=== PATIENT | female | born 1975 | race Caucasian/White ===

== ENCOUNTER 2024-03-02 13:35 | Outpatient (AMB) | payer BC, SELFPAY ==
--- NOTE | 2024-03-02 13:43 | MHC.PC.OV ---
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 Transferring care from [facility]. Medical records have not been requested and have not received. Director Of Retail Analytics Required: No Dragline Operator Helper: Not Required per policy Accompanied by: Self / Same As Patient Allergies acetaminophen [From Percocet] Allergy (Intermediate, Verified 03/09/24 05:05) Vomiting oxycodone [From Percocet] Allergy (Intermediate, Verified 03/09/24 05:05) Vomiting Medication List - Last Reconciled 03/02/24 by Grupo Sim MD No Known Home Meds Tobacco use date assessed: 03/02/24 Dental Screening Dental Screen Date: 03/02/24 Did you have a dental visit in the last 12 months?: Yes Did you have a dental problem in the last 6 months where you did not have access to dental care?: No Was dental information given to patient?: Patient has dentist HPI SCHOOL COOK/ shoulder pain HPI Details Patient comes in today to establish care - is transferring over from [facility] Relates (+) right shoulder pain x couple of months - shoulder is feeling better now Recalls that she fell on her right side in the parking lot after tripping on her own flip flops a few months ago and she did try to break her fall with her right hand then when she fell but the pain in her shoulder started up a couple of weeks later after her fall Notes that the pain in her shoulder feels worse in AM upon waking up and when she tries to reach behind her (downwards) Also relates (+) recurrent left foot pain for a few years now - states that the pain in her left foot feels worse in the summer and 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 She denies any recent injury or trauma to her left foot She denies any headaches or dizziness Denies any chest pains, no SOB No nausea/vomiting, no abdominal pain No change in bowel habits noted She denies any acute urinary symptoms She has been in menopause for a few years now - relates that her period stopped sometime in 2019; relates (+) mild hot flashes at times She last had her gynecology exam and pap smear done a few yrs ago Last annual mammogram was also about 8 yrs ago She has never had a screening colonoscopy done in the past [facility] Medical History (Updated 03/09/24 @ 05:18 by Grupo Sim MD) Obesity (BMI 30-39.9) No pertinent past medical history Surgical History History of tubal ligation History of dental surgery Social History Housing: House Alcohol intake: never Patient Tobacco Use Status: Former Tobacco user e-Cigarette/Vaping Use: Never Used Second Hand Smoke Exposure: Yes service: No Current occupational status: employed 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 1. Little interest or pleasure in doing things: not at all 2. Feeling down, depressed, or hopeless: not at all 3. Trouble falling or staying asleep, or sleeping too much: not at all 4. Feeling tired or having little energy: not at all 5. Poor appetite or overeating: not at all 6. Feeling bad about yourself - or that you are a failure or have let yourself or your family down: not at all 7. Trouble concentrating on things, such as reading the newspaper or watching television: not at all 8. Moving or speaking so slowly that other people could have noticed. Or the opposite - being so fidgety or restless that you have been moving around a lot more than usual: not at all 9. Thoughts that you would be better off or of hurting yourself in some way: not at all Total score: 0 Depression Screening Interpretation: Negative Depression Screening Done: Yes 33520 - PHQ-9 Billing: Yes Source: Developed by Drs. Chapo Spicer, Rona Choi, Terry Cruz and colleagues, with an educational harry from [employer]. Thrive Questionnaire Date Thrive assessed: 03/02/24 I am a: Patient What is your living situation today?: I have a steady place to live Within the past 12 months, did the food you bought not last and you didn't have the money to get more?: Never true Within the past 12 months, did you worry whether your food would run out before you got money to buy more?: Never true Do you have trouble paying for medicines?: No Do you have trouble getting transportation to medical appointments?: No Do you have trouble paying your heating and electricity bill?: No Do you have trouble taking care of your child, family member or friend?: No Do you have trouble with day-to-day activities such as bathing, preparing meals, shopping, managing finances, etc.?: No Are you currently unemployed and looking for a job?: No Are you interested in more education?: No Currently or been in a relationship where the following occur: No concerns reported THRIVE Score: 0 AUDIT C Alcohol Use Questionnaire (AUDIT-C) 1. How often do you have a drink containing alcohol?: Never 3. How often do you have six or more drinks on one occasion?: Never Total Score: 0 Score Reviewed/Action Taken: Yes CHERIE-7 AMB Questionnaire CHERIE-7 Date CHERIE - 7 assessed: 03/02/24 Feeling nervous, anxious, or on edge: 0 = Not at all Not being able to stop or control worryin = Not at all Worrying too much about different things: 0 = Not at all Trouble relaxin = Not at all Being so restless that it is hard to sit still: 0 = Not at all Becoming easily annoyed or irritable: 0 = Not at all Feeling afraid as if something awful might happen: 0 = Not at all Total CHERIE-7 score (0-4 normal; 5-9 mild; 10-14 moderate; 15-21 severe): 0 Source: Developed by Drs. Chapo Spicer, Rona Choi, Terry Cruz and colleagues, with an educational harry from [employer]. Review of Systems Const Denies chills, Denies fatigue, Denies fever(s), Denies headache(s) and Denies malaise Eyes Denies blurry vision, Denies change in vision, Denies irritation and Denies itchy eyes ENT Denies dysphagia, Denies dizziness, Denies otalgia, Denies headache(s), Denies nasal congestion, Denies neck pain, Denies odynophagia, Denies sinus pain and Denies sore throat Card Denies chest pain, Denies rapid heart rate, Denies irregular heart rhythm, Denies palpitations and Denies dyspnea Resp Denies chest congestion, Denies cough, Denies dyspnea and Denies wheezing GI Denies abdominal pain, Denies bloating, Denies constipation, Denies dysphagia, Denies heartburn, Denies diarrhea, Denies nausea, Denies odynophagia and Denies vomiting Denies hematuria, Denies urinary frequency, Reports hot flashes (occasionally), Denies dysuria, Denies urinary incontinence and Denies urinary urgency Musc Details: left foot pain - see HPI Denies back pain, Reports arthralgias (in the right shoulder - see HPI), Denies joint swelling, Denies muscle weakness and Denies neck pain Skin/Breast Denies breast pain, Denies breast mass, Denies change in pigmentation, Denies lesions, Denies rash and Denies unusual bruising Neuro Denies dizziness, Denies headache(s) and Denies paresthesias Psych Denies anxiety and Denies depression Endo Denies fatigue and Denies palpitations Raulito/Lymph Denies easy bruising Aller/Immun Denies itchy eyes and Denies wheezing Physical exam (Primary Care) Vital Signs: Last Vital Signs Pulse 105 H 03/02/24 13:45 BP 110/82 03/02/24 13:45 Pulse Ox 98 03/02/24 13:45 Oxygen Delivery Method Room Air 03/02/24 13:45 BMI result Body Mass Index 30.0 Tobacco/Smoking Status: Tobacco use Status Tobacco use date assessed 03/02/24 03/02/24 13:54 Patient Tobacco Use Status Former Tobacco user 03/02/24 13:54 e-Cigarette/Vaping Use Never Used 03/02/24 13:54 PHQ-9: PHQ-9 Score PHQ-9: Total score 0 03/02/24 14:14 Depression Screening Interpretation: Negative Thrive Assessment: Date of Thrive Assessment Date Thrive assessed 03/02/24 03/02/24 13:54 Currently or been in a relationship where the following occur: No concerns reported Const General: no acute distress, alert and awake Orientation/consciousness: patient oriented x3 HENMT Head: Yes normocephalic and Yes atraumatic Ears: external ears normal, TM's normal bilaterally and EAC's normal General nose exam: No nasal discharge present Face and sinus: Yes normal facial exam and Yes sinuses nontender Teeth and gingiva: dentition normal Throat: Yes posterior oropharynx normal and Yes tonsils normal (no TP congestion) Eyes Eyelids: Yes eyelids normal Conjunctivae: conjunctivae normal Pupils: Equal, round and reactive pupils present EOM: EOMs intact bilaterally Neck Neck: Yes no lymphadenopathy and Yes supple Thyroid: Thyroid normal Resp Auscultation: clear to auscultation bilaterally, no rales and no wheezes Cardio Rate: regular rate Rhythm: regular rhythm Heart sounds: no murmurs GI Palpation (GI): Soft to palpation, nontender and No hepatosplenomegaly present Auscultation: normal bowel sounds General: Yes no CVA tenderness Back/Spine/Pelvis Back: no CVA tenderness Thoracic/Lumbar Spine: thoracic and lumbar spine normal to inspection Skin Lesions: no lesions Rashes: no rashes Neuro General: patient oriented x3, moves all extremities, no focal motor deficits and CN's II-XI intact bilaterally Cranial nerves: Yes Equal, round and reactive pupils present Cognition (Neuro): normal cognition Gait exam (Neuro): Normal gait present Extrem General: Yes no clubbing, cyanosis or edema Right upper extremity: shoulder/upper arm Details: tenderness Location: of the A-C joint and normal ROM Left lower extremity: foot Details: normal to inspection; no tenderness Assessment and Plan Assessment & Plan (1) Annual physical exam: Code(s): Z00.00 - Encounter for general adult medical examination without abnormal findings Plan: Check labs (2) Right shoulder pain: Code(s): M25.511 - Pain in right shoulder Qualifiers: Chronicity: unspecified Qualified Code(s): M25.511 - Pain in right shoulder Plan: Will send patient for x-rays of the right shoulder for further evaluation (3) Left foot pain: Code(s): M79.672 - Pain in left foot Plan: Will send her for left foot x-rays for further evaluation (4) Obesity (BMI 30-39.9): Code(s): E66.9 - Obesity, unspecified Plan: Discussed diet/exercise as tolerated/lose weight (5) Colon cancer screening: Code(s): Z12.11 - Encounter for screening for malignant neoplasm of colon Plan: Will refer her to GI for screening colonoscopy (6) Breast cancer screening by mammogram: Code(s): Z12.31 - Encounter for screening mammogram for malignant neoplasm of breast Plan: Will send her for annual mammography (7) Cervical cancer screening: Code(s): Z12.4 - Encounter for screening for malignant neoplasm of cervix Plan: Will refer her to gynecology for her annual pap smear and gynecology exam Plan To return in 1 year for her next annual physical examination Orders: Orders Complete Blood Count Auto Diff 03/02/24 D64.9 - Anemia, unspecified, Z00.00 - Encounter for general adult medical examination without abnormal findings Comprehensive [place]. Panel Fast 03/02/24 E78.00 - Pure hypercholesterolemia, unspecified, Z00.00 - Encounter for general adult medical examination without abnormal findings Lipid Panel 03/02/24 E78.00 - Pure hypercholesterolemia, unspecified, Z00.00 - Encounter for general adult medical examination without abnormal findings UA CC w/rflx Micro + Cult 03/02/24 R30.0 - Dysuria, Z00.00 - Encounter for general adult medical examination without abnormal findings XR shoulder RT min 2V 03/02/24 M25.511 - Pain in right shoulder XR foot LT min 3V 03/02/24 M79.672 - Pain in left foot TSH reflex Free T4 03/02/24 E78.00 - Pure hypercholesterolemia, unspecified, Z00.00 - Encounter for general adult medical examination without abnormal findings Vitamin D 25-OH Total 03/02/24 E55.9 - Vitamin D deficiency, unspecified, Z00.00 - Encounter for general adult medical examination without abnormal findings MM tomosynthesis screening BI 03/02/24 Z12.31 - Encounter for screening mammogram for malignant neoplasm of breast Referrals Gastroenterology Referral Z12.11 - Encounter for screening for malignant neoplasm of colon INCIDENT RESPONSE ANALYST Referral Z12.4 - Encounter for screening for malignant neoplasm of cervix Coding Level of Care Code New Pt Prev Care 40-64y(96509) Diagnoses Annual physical exam Z00.00 Right shoulder pain, unspecified chronicity M25.511 Chronicity: unspecified Left foot pain M79.672 Obesity (BMI 30-39.9) E66.9 Colon cancer screening Z12.11 Breast cancer screening by mammogram Z12.31 Cervical cancer screening Z12.4
[2024-03-02 13:45] VITALS: BP 110/82; PULSE 105; O2SAT 98
== END 2024-03-02 14:37 | disposition home or self-care (01) ==
PROVIDERS: PCP Internal Medicine; Visit Provider Internal Medicine
DX: Z00.00 Encounter for general adult medical examination without abnormal findings (principal); M25.511 Pain in right shoulder; E66.9 Obesity, unspecified; Z68.30 Body mass index [BMI] 30.0-30.9, adult
CPT/HCPCS: 99386

== ENCOUNTER 2024-04-08 08:32 | Outpatient (REF) | payer BC, SELFPAY ==
--- NOTE | ~2024-04-08 | MM_ITS ---
EXAMINATION: MM SCREENING DIGITAL BREAST TOMOSYNTHESIS, BILATERAL CLINICAL INFORMATION: Screening. Asymptomatic. COMPARISON: Mammography: Baseline. TECHNIQUE: Digital breast tomosynthesis is performed in both the craniocaudal and mediolateral oblique views along with computer-aided detection (CAD). Synthesized 2D images are generated from the tomosynthesis. FINDINGS: There are scattered areas of fibroglandular density (ACR BI-RADS breast composition Category b). There are no significant masses, abnormal calcifications, or other abnormalities. MM/MM tomosynthesis screening BI IMPRESSION: No mammographic evidence of malignancy. ASSESSMENT: BI-RADS BI-RADS 1 - Negative RECOMMENDATION: Routine annual mammography screening. 1 year F/U This examination should not preclude the clinical evaluation of a suspicious palpable abnormality. This patient's information was entered into a reminder system with a target due date for their next mammogram. Electronically signed by: Jana Beckman DO 05/01/2024 03:56 PM EDT
== END 2024-04-08 08:33 | disposition home or self-care (01) ==
LOC: HO.MAMMO 08:32
PROVIDERS: PCP Internal Medicine; Visit Provider Internal Medicine
DX: Z12.31 Encounter for screening mammogram for malignant neoplasm of breast (principal)
CPT/HCPCS: 77063; 77067

== ENCOUNTER → 2024-04-08 08:34 | Outpatient (BNV) | payer BC, SELFPAY | PROVIDERS: PCP Internal Medicine; Visit Provider Internal Medicine | DX: Z12.31 Encounter for screening mammogram for malignant neoplasm of breast (principal) | CPT/HCPCS: 77063; 77067 ==

== ENCOUNTER 2024-06-18 13:11 | Outpatient (REF) | payer BC, SELFPAY ==
[2024-06-19 12:38] LABS: HPV 16,18/45 See PAP report
== END 2024-06-18 13:12 | disposition home or self-care (01) ==
LOC: HO.LNP 13:11
PROVIDERS: PCP Internal Medicine; Visit Provider Advanced Practice Midwife
DX: Z01.419 Encounter for gynecological examination (general) (routine) without abnormal findings (principal); Z87.42 Personal history of other diseases of the female genital tract
CPT/HCPCS: 87624; 88175

== ENCOUNTER 2024-06-18 13:11 | Outpatient (AMB) | payer BC, SELFPAY ==
--- NOTE | 2024-06-18 13:12 | MHC.OFFVIS ---
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 She is doing well with no concerns. Attempting to eat a healthy diet with calcium and vitamin D and stays active with exercise-gym. Currently sexually active w/. Denies any vaginal dryness or irritation, has an occasional odor. She reports loss of scent and taste w/covid, and thinks this contributes to her concern. LMP >1yr. ago. STI testing offered; she declined. Last pap smear; 8-9yrs. ago. Last mammogram; 2023. Colonoscopy is scheduled. Denies any family history of breast, ovarian or colon cancer. 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 Cognitive needs: No Hearing needs: No Vision needs: Yes (Glasses) Female Reproductive History Menstrual Total pregnancies: 1 Full term: 1 Date of Mammogram: 04/08/24 (bi-rad 1) Review of Systems Const All systems reviewed & are unremarkable except as noted in HPI and below Reports as per HPI Eyes Reports no additional complaints ENT Reports no additional complaints Card Reports no additional complaints Resp Reports no additional complaints GI Reports as per HPI and Reports no additional complaints Reports as per HPI Musc Reports no additional complaints Skin/Breast Reports as per HPI Neuro Reports no additional complaints Psych Reports no additional complaints Endo Reports no additional complaints Raulito/Lymph Reports no additional complaints Aller/Immun Reports no additional complaints Physical Exam Vital Signs: Last Vital Signs BP 118/74 06/18/24 13:17 BMI result Body Mass Index 32.1 Const General: cooperative, healthy appearing, no acute distress, well developed and alert Orientation/consciousness: patient oriented x3 HEENT Head: Yes normal to inspection Eyes General: appearance normal, both eyes and all related structures Neck Neck: Yes normal visual inspection Thyroid: Thyroid normal Chest Chest palpation & inspection: normal inspection of the chest and other (no puckering, dimpling, peau de orange, retraction, discharge, masses) Breast/axilla inspection: normal inspection of the breasts Breast/axilla palpation: normal palpation of the breasts Resp Effort & Inspection: normal respiratory effort GI Inspection: Yes normal to inspection Palpation (GI): Soft to palpation Rectal Exam - Female: deferred General: Yes bladder normal to palpation External Female Exam: normal external appearance and normal appearance of the urethra Speculum Exam - Vagina: normal appearance of the vagina, normal palpation and normal vaginal discharge Speculum Exam - Cervix: normal appearance of the cervix and normal palpation Bimanual exam- vagina & uterus: normal bimanual exam, normal palpation, uterine size normal, bladder normal to palpation, normal palpation and non-tender Bimanual Exam- Adnexa, other: no masses Skin General skin exam: no rashes or lesions noted Rashes: no rashes Neuro General: patient oriented x3 Cognition (Neuro): normal cognition Extrem General: Yes normal to inspection Psych Attitude: cooperative Thought process: Normal thought process present Assessment & Plan Assessment & Plan (1) Encounter for well woman exam with routine gynecological exam: Code(s): Z01.419 - Encounter for gynecological examination (general) (routine) without abnormal findings Category: Medical Plan Discussed: Current recommendations for pap smears per ASCCP guidelines. Breast awareness, periodic self breast exams and yearly mammogram. Maintain a healthy lifestyle, well balanced diet including Calcium 1,200 mg and Vitamin D 600 IU daily, and routine exercise. Moisturizer, vaginal lubricants. Role of Clinton/ flaxseed supplements. Contact the office with any postmenopausal bleeding. Patient verbalizes understanding and agrees to the plan of care. She was given opportunity to ask questions and all questions were answered to the best of my ability. RTO in 1 year for annual dining room server exam. This note is constructed using voice recognition software. While every effort has been made to ensure accuracy, case preparer and liner errors may have been included. Orders: Orders Pap Smear Today Z01.419 - Encounter for gynecological examination (general) (routine) without abnormal findings HPV High risk Today Z01.419 - Encounter for gynecological examination (general) (routine) without abnormal findings Coding Level of Care Code New Pt Prev Care 40-64y(67064) Diagnoses Encounter for well woman exam with routine gynecological exam Z01.419
[2024-06-18 13:17] VITALS: BP 118/74; BMI 32.1
== END 2024-06-18 14:02 | disposition home or self-care (01) ==
LOC: HO.HWS 13:11
PROVIDERS: PCP Internal Medicine; Visit Provider Advanced Practice Midwife
DX: Z01.419 Encounter for gynecological examination (general) (routine) without abnormal findings (principal)
CPT/HCPCS: 99386

== ENCOUNTER 2025-04-14 08:49 | Outpatient (REF) | payer BC, SELFPAY ==
--- OUTSIDE RECORDS SUMMARY | 2025-04-14 09:18 | XMS_ITS | Clinical Summary ---
Author Organization [facility] Address [address] [address] Phone Care Team Providers Care Heel Sorter Name Role Phone Pcp, Unknown Primary Care Provider Unavailabl e Allergies Active Allergy Reactions Criticality Noted Date Comments Codeine Nausea and/or Vomiting 07/27/2023 Medications FLONASE ALLERGY RELIEF 50 mcg/actuation nasal spray Salkum 2 sprays every day by intranasal route as directed for 7 days. Active Active Problems No known active problems Social History Tobacco Use Types Packs/Day Years Used Date Smoking Tobacco: Former Cigarettes Smokeless Tobacco: Never Tobacco Cessation:Counseling Given: Not Answered Education Answer Date Recorded Are you interested in more education? Not on javier e 07/27/2023 Are you concerned about learning? Not on file 07/27/2023 No 07/27/2023 No 07/27/2023 Digital Access Answer Date Recorded No 07/27/2023 No 07/27/2023 Reliable internet access at home? Not on file 07/27/2023 Device with a working camera? Not on file Comments Unknown Sex and Gender Information Value Date Recorded Sex Assigned at Not on file Legal Sex Female 9:30 PM EDT Gender Identity Not on file Sexual Orientation Not on file Last Filed Vital Signs Vital Sign Reading Time Taken Comments Blood Pressure 117/83 07/27/2023 11:44 AM EST Pulse 101 07/27/2023 11:44 AM EST Temperature 36.8 C (98.2 F) 07/27/2023 11:44 AM EST Respiratory Rate 18 07/27/2023 11:44 AM EST Oxygen Saturation 97% 07/27/2023 11:44 AM EST Inhaled Oxygen Concentration - - Weight - - Height - - Body Mass Index - - Plan of Treatment Health Maintenance Due Date Last Done Comments LIPID PANEL 1973 DEPRESSION SCREENING 1985 SMOKING Hx and SMOKELESS TOB ACCO SCREENING 1986 HEPATITIS C SCREENING 12/21/1991 HIV ONE-TIME SCREENING (18-6 5 YEARS) 12/21/1991 PAP SMEAR 1994 MAMMOGRAM 2013 COLOGUARD 2018 COLONOSCOPY 2018 COLORECTAL CANCER SCREENING 2018 FIT TEST 2018 FOBT 2018 SIGMOIDOSCOPY 2018 VIRTUAL COLONOSCOPY 2018 Adult Td,Tdap Booster 12/16/2022 12/16/2012 PNEUMOCOCCAL VACCINES (50+ y ears) (1 of 1 - PCV) 12/21/2023 ZOSTER VACCINES (1 of 2) 12/21/2023 INFLUENZA VACCINE (#1) 2025 COVID-19 VACCINE (2 - 2024-2 6 season) 2025 02/18/2021 HEPATITIS A VACCINES Aged Out No long er eligible based on patient's age to complete this topic HIB VACCINES Aged Out No longer eligi ble based on patient's age to complete this topic MENINGOCOCCAL VACCINES (ACWY) Aged Out No longer eligible based on patient's age to complete this topic MENINGOCOCCAL VACCINES (B) Aged Out N o longer eligible based on patient's age to complete this topic Medical Devices Not on file Insurance CHOICE PLUS Member Subscriber Plan / Payer (Ef fective 2023-Present) Name:Anne Medeiros Relation to Subscriber:Spouse Name:YOMAIRA MEDEIROS Date of :1961 (Home) Address: [address] [place] [address] Payer ID:[id number] (NAIC) Type:PPO Address: [address] PPO [facility] CHOICE PLUS Member Subscriber Plan / Payer (Ef fective 2023-Present) Name:Anne Medeiros Relation to Subscriber:Spouse Name:YOMAIRA MEDEIROS Date of :1963 (Home) Address: [address] [place] [address] Payer ID:[id number] (NA) Type:PPO Address: [address] [employer] CHOICE PLUS Member Subscriber Plan / Payer (Ef fective 2023-Present) Name:EmilySuzyAnne Relation to Subscriber:Spouse Name:YOMAIRA MEDEIROS Date of :1963 (Home) Address: [address] [place] [address] Payer ID:[id number] (NAIC) Type:PPO Address: [address] PPO [facility] [employer] CHOICE PLUS S CHOICE PLUS Member Subscriber Plan / Payer (Ef fective 2023-) Name:Anne Medeiros Relation to Subscriber:Spouse Name:YOMAIRA MEDEIROS Date of :1963 (Home) Address: [address] [place] [address] Payer ID:[id number] ([facility]) Type:PPO Address: [address] Member Subscriber Plan / Payer (Ef fective 2023-Present) Name:Anne Medeiros Relation to Subscriber:Spouse Name:YOMAIRA MEDEIROS Date of :1963 (Home) Address: [address] [place] [address] Payer ID:Not on file Type:PPO Address: [place] [id number] [place] [address] CHOICE PLUS Member Subscriber Plan / Payer (Ef fective 2023-Present) Name:Anne Medeiros Relation to Subscriber:Spouse Name:ROBERTRYYOMAIRA ANDRADE Date of :1963 (Home) Address: [address] [place] [address] Payer ID:[id number] ([facility]) Type:PPO Address: [address] [facility] Care Teams Heel Sorter Relationship Specialty Start Date End Date Pcp, Unknown PCP - General 07/27/23 Additional Source Comments The information contained in this document represents components of the legal health record. It is not the complete legal health record.[facility]
== END 2025-04-14 08:50 | disposition home or self-care (01) ==
LOC: HO.MAMMO 08:49
PROVIDERS: PCP Internal Medicine; Visit Provider Internal Medicine
DX: Z12.31 Encounter for screening mammogram for malignant neoplasm of breast (principal)
CPT/HCPCS: 77063; 77067

== ENCOUNTER → 2025-04-14 09:00 | Outpatient (BNV) | payer BC, SELFPAY | PROVIDERS: PCP Internal Medicine; Visit Provider Internal Medicine | DX: Z12.31 Encounter for screening mammogram for malignant neoplasm of breast (principal) | CPT/HCPCS: 77063; 77067 ==